=== PATIENT | female | born 1965 | race Caucasian/White ===

== ENCOUNTER 2021-12-23 15:07 | Outpatient (CLI) | payer BC, SELFPAY ==
--- NOTE | ~2021-12-23 | CT_ITS ---
EXAMINATION: CT lung screening DATE: 12/23/2021 15:28 INDICATION: First annual screening examination. TECHNIQUE: Computed tomography (CT) of the chest was performed without intravenous contrast. The dose -length product was 56.62 mGy-cm. Automated exposure control and iterative reconstruction technique w ere employed. COMPARISON: None FINDINGS: Heart size is normal. No significant pleural or pericardial effusion. There is mild ectasia of the ascending thoracic aorta measuring 3.9 cm. There are calcified granulomas in the left lung an d left hilum. There are calcified splenic granulomas. No thoracic lymphadenopathy. The upper abdomen is unremarkable. There are small 3 mm fissural nodules on the right. There is a 4 mm left upper lobe nodule, image 30. No focal consolidation or pneumothorax. No endobronchial lesions. There is a 2 mm r ight upper lobe nodule, coronal image 42. IMPRESSION: 1. Lung-RADS category 2: Benign appearance or behavior. Continue annual screening with noncontrast lo w-dose chest CT in 12 months. Reviewed, dictated and finalized at location [employer]. [employer] IMPRESSION: 1. Lung-RADS category 2: Benign appearance or behavior. Continue annual screeni ng with noncontrast low-dose chest CT in 12 months.
== END 2021-12-23 15:08 | disposition home or self-care (01) ==
LOC: ANHIMG 15:09
PROVIDERS: PCP Family Medicine; Visit Provider Physician Assistant
DX: Z12.2 Encounter for screening for malignant neoplasm of respiratory organs (principal); Z87.891 Personal history of nicotine dependence
CPT/HCPCS: 71271

== ENCOUNTER 2022-12-25 18:18 | Emergency (ER) | payer OTHER, SELFPAY ==
[2022-12-25 18:22] VITALS: BP 139/83; PULSE 82; RESP 14; TEMP 36.4; O2SAT 97
--- NOTE | 2022-12-25 18:34 | ED.URI ---
HPI - URI/Sore Throat General Chief Complaint: Upper Respiratory Infection Stated Complaint: sinus infection Time Seen by Provider: 12/25/22 18:35 Source: patient and RN notes reviewed Mode of arrival: ambulatory Limitations: no limitations History of Present Illness HPI Narrative: 57-year-old female presents with for one-week history of sinus headache, ringing in the ears, nausea. She reports she felt worse over the last 2 days. She reports she has been taking [id number] medications without much relief. MD elicited complaint: sore throat, nasal congestion and sinus pain Related Data Home Medications Medication Instructions Recorded Confirmed hydrocodone 10 mg-acetaminophen 1 tablet PO Q4H PRN 12/22/18 06/18/22 325 mg tablet ([employer]) Allergies Allergy/AdvReac Type Severity Reaction Status Date / Time CEPHALEXIN MONOHYDRATE Allergy Unknown Rash Uncoded 06/18/22 11:03 PROCHLORPERAZINE MALEATE AdvReac Mild Other Uncoded 06/18/22 11:03 PROCHLORPERAZINE EDISYLATE AdvReac Unknown Other Uncoded 06/18/22 11:03 Review of Systems Review of Systems: CONSTITUTIONAL: Reports malaise. Denies chills, sweats, or fever. EYES: Denies visual changes, redness, or discharge. ENT: Reports rhinorrhea, congestion, sinus pain, otalgia and sore throat. CARDIOVASCULAR: Denies chest pain, palpitations, or edema. RESPIRATORY: Denies cough. Denies dyspnea. GASTROINTESTINAL: Denies abdominal pain, nausea, vomiting, diarrhea SKIN: Denies rash or itching. MUSCULOSKELETAL: Denies myalgia. NEUROLOGIC: Reports headache. All systems reviewed & are unremarkable except as noted in HPI and below PMFSH Past Medical History Medical History Chronic low back pain LEVAR (generalized anxiety disorder) GERD (gastroesophageal reflux disease) HTN (hypertension) IFG (impaired fasting glucose) Insomnia Major depression, chronic Vitamin B12 deficiency Vitamin D deficiency Family History Family History Father Hypertension Family history of kidney disease Family history of diabetes mellitus in first degree relative Family history of coronary artery disease Mother Hypertension Sibling Family history of Hodgkin's lymphoma Social History Social History Smoking packs per day: 1 Smoking cigarettes per day: 20.0 Years smoked: 20 Smoking pack-years: 20.00 Smoking status: Current every day smoker Tobacco type: cigarettes Second hand tobacco smoke exposure: Yes Smoking end date: 02/08/04 Alcohol intake: never Substance use: never Substance use type: does not use Living arrangements: with family Occupation/Education: occupation Gender identity (if verbalized by the patient): Female Comments At time of signature, agree with nursing past medical, surgical, social and family history. There is no relevant family history pertinent to the presenting complaint Exam Narrative: GENERAL: Well-appearing, well-nourished, and in no acute distress. HEAD: Normocephalic EYES: PERRLA, conjunctivae clear ENT: Nares clear, turbinates edematous and erythematous, sinus tenderness. Mucous membranes moist. TM pearly roman with dull light reflex bilaterally; no tragal tenderness. Oropharynx not erythematous without lesions. Tonsils not enlarged and without exudate, no drooling, no hoarseness, no trismus, uvula midline. NECK: Supple. No lymphadenopathy CHEST: Clear to auscultation, breath sounds equal. No wheezing, rhonchi, rales, or stridor. No respiratory distress, speaks in full sentences. HEART: Regular rate and rhythm. No murmur heard. SKIN: Warm, dry, no rash. NEURO: Alert and oriented x3. PSYCH: Normal mood and affect Course Course Emergency Course: Patient is aware of diagnosis, understands and agrees to treatment plan. Anticipatory guidance given. Patient
== END 2022-12-25 18:45 | disposition home or self-care (01) ==
PROVIDERS: Emergency Provider Nurse Practitioner; PCP Family Medicine
DX: J32.9 Chronic sinusitis, unspecified (principal); Z87.891 Personal history of nicotine dependence; K21.9 Gastro-esophageal reflux disease without esophagitis; I10 Essential (primary) hypertension
CPT/HCPCS: 99213; G0463

== ENCOUNTER 2023-01-26 00:41 | Day surgery (SDC) | payer OTHER, SELFPAY ==
[2023-01-06 13:21] VITALS: BMI 22.5
--- NOTE | 2023-01-24 08:34 | SUR.PREOP ---
Patient called regarding upcoming procedure. Message left on patient's voicemail regarding appointment times.
--- NOTE | 2023-01-24 14:05 | PM.HPGS ---
History of Present Illness History of Present Illness Consent: Risks, benefits, and alternatives have been discussed and questions answered. Patient agrees to proceed with procedure. Chief complaint: neoplasm screening Narrative: Papo Phillips is a 57 year old female referred for colon cancer screening. Review of Systems Review of Systems: All systems reviewed & are unremarkable except as noted in HPI and below PMFSH Past Medical History Medical History Chronic low back pain LEVAR (generalized anxiety disorder) GERD (gastroesophageal reflux disease) HTN (hypertension) IFG (impaired fasting glucose) Insomnia Major depression, chronic Vitamin B12 deficiency Vitamin D deficiency Family History Family History Father Hypertension Family history of kidney disease Family history of diabetes mellitus in first degree relative Family history of coronary artery disease Mother Hypertension Sibling Family history of Hodgkin's lymphoma Social History Social History Smoking packs per day: 0.5 Smoking cigarettes per day: 10.0 Years smoked: 20 Smoking pack-years: 10.00 Smoking status: Light tobacco smoker Tobacco type: cigarettes Second hand tobacco smoke exposure: Yes Smoking end date: 02/08/04 Alcohol intake: never Substance use: current Substance use type: opiates Other substance usage details: 10mg hydrocodone-acetaminophen 3-4 times daily for back pain Living arrangements: with friend(s) Occupation/Education: occupation Gender identity (if verbalized by the patient): Female Spiritual care concerns: No Meds Home Medications and Allergies Home Medications Medication Instructions Recorded Confirmed Type hydrocodone 10 mg-acetaminophen 1 tablet PO Q4H PRN Pain 12/22/18 01/06/23 History 325 mg tablet ([place]) cetirizine 10 mg tablet 10 mg PO DAILY #90 tabs 12/18/21 01/06/23 Rx omeprazole 20 mg capsule,delayed See Rx Instructions .Route 12/18/21 01/06/23 Rx release .COMPLEX #90 caps duloxetine 60 mg capsule,delayed 60 mg PO DAILY #90 caps 04/20/22 01/06/23 Rx release estradiol 1 mg tablet ([employer]) 1 mg PO DAILY #90 tabs 09/16/22 01/06/23 Rx medroxyprogesterone 2.5 mg tablet 5 mg PO DAILY #180 tabs 09/16/22 01/06/23 Rx trazodone 50 mg tablet 100 mg PO DAILY #180 tabs 10/19/22 01/06/23 Rx alprazolam 0.25 mg tablet 0.25 mg PO TID PRN anxiety #30 tabs 10/25/22 01/06/23 Rx etodolac 500 mg tablet 500 mg PO BID #180 tabs 12/14/22 01/06/23 Rx losartan 100 mg tablet 100 mg PO DAILY 01/06/23 01/06/23 History Allergies Allergy/AdvReac Type Severity Reaction Status Date / Time CEPHALEXIN MONOHYDRATE Allergy Unknown Rash Uncoded 12/28/22 15:03 PROCHLORPERAZINE MALEATE AdvReac Mild Other Uncoded 12/28/22 15:03 PROCHLORPERAZINE EDISYLATE AdvReac Unknown Other Uncoded 12/28/22 15:03 Exam Resp: Auscultation: clear to auscultation bilaterally Cardio: Rate: regular rate Rhythm: regular rhythm GI: GI Palp: Yes Soft to palpation and No Tenderness to palpation present (GI) Assessment and Plan Assessment and plan (1) Colon cancer screening: Code(s): Z12.11 - Encounter for screening for malignant neoplasm of colon Status: Acute Assessment and Plan: Colonoscopy with possible biopsy or polypectomy or cautery or injection of substances.
[2023-01-26 08:27] VITALS: BP 139/88; PULSE 73; RESP 18; TEMP 36.8; O2SAT 100; BMI 23.1
--- NOTE | 2023-01-26 08:46 | WPDANESEPPF ---
Anes - Initial Pre Proc Eval Procedure: Operation Date: 01/26/23 09:30 Proposed Procedures p Screening Colonoscopy - Collin Banks MD Date/Time: 01/26/23 08:46 Surgeon: Collin Banks MD Pre Op Diagnosis: neoplasm screening Patient Data Age: 57 Gender: F Height: 1.52 m Weight: 53.8 kg Last Vital Signs Temp 36.8 C 01/26/23 08:27 Pulse 73 01/26/23 08:27 Resp 18 01/26/23 08:27 BP 139/88 01/26/23 08:27 Pulse Ox 100 01/26/23 08:27 O2 Del Method Room Air 01/26/23 08:27 Allergies Allergy/AdvReac Type Severity Reaction Status Date / Time CEPHALEXIN MONOHYDRATE Allergy Unknown Rash Uncoded 12/28/22 15:03 PROCHLORPERAZINE MALEATE AdvReac Mild Other Uncoded 12/28/22 15:03 PROCHLORPERAZINE EDISYLATE AdvReac Unknown Other Uncoded 12/28/22 15:03 Home Medications Medication Instructions Recorded Confirmed Type hydrocodone 10 mg-acetaminophen 1 tablet PO Q4H PRN Pain 12/22/18 01/06/23 History 325 mg tablet ([place]) cetirizine 10 mg tablet 10 mg PO DAILY #90 tabs 12/18/21 01/06/23 Rx omeprazole 20 mg capsule,delayed See Rx Instructions .Route 12/18/21 01/06/23 Rx release .COMPLEX #90 caps duloxetine 60 mg capsule,delayed 60 mg PO DAILY #90 caps 04/20/22 01/06/23 Rx release estradiol 1 mg tablet ([employer]) 1 mg PO DAILY #90 tabs 09/16/22 01/06/23 Rx medroxyprogesterone 2.5 mg tablet 5 mg PO DAILY #180 tabs 09/16/22 01/06/23 Rx trazodone 50 mg tablet 100 mg PO DAILY #180 tabs 10/19/22 01/06/23 Rx alprazolam 0.25 mg tablet 0.25 mg PO TID PRN anxiety #30 tabs 10/25/22 01/06/23 Rx etodolac 500 mg tablet 500 mg PO BID #180 tabs 12/14/22 01/06/23 Rx losartan 100 mg tablet 100 mg PO DAILY 01/06/23 01/06/23 History Patient hx anesthesia problems: none Family hx anesthesia problems: none Results Review: All pre-operative results and documents have been reviewed as part of the pre-operative evaluation. [facility] Past Medical History Medical History Chronic low back pain LEVAR (generalized anxiety disorder) GERD (gastroesophageal reflux disease) HTN (hypertension) IFG (impaired fasting glucose) Insomnia Major depression, chronic Vitamin B12 deficiency Vitamin D deficiency Family History Family History Father Hypertension Family history of kidney disease Family history of diabetes mellitus in first degree relative Family history of coronary artery disease Mother Hypertension Sibling Family history of Hodgkin's lymphoma Social History Social History Smoking packs per day: 0.5 Smoking cigarettes per day: 10.0 Years smoked: 20 Smoking pack-years: 10.00 Smoking status: Light tobacco smoker Tobacco type: cigarettes Second hand tobacco smoke exposure: Yes Smoking end date: 02/08/04 Alcohol intake: never Substance use: current Substance use type: opiates Other substance usage details: 10mg hydrocodone-acetaminophen 3-4 times daily for back pain Living arrangements: with friend(s) Occupation/Education: occupation Gender identity (if verbalized by the patient): Female Spiritual care concerns: No Anes - Eval Final PreProcedure Day of Procedure 01/26/23 08:46 Patient weight: normal Heart: regular rate and rhythm Lungs: clear to auscultation Airway: Mallampati scale class II Neurological: alert and oriented Last oral intake: >/= 8 hours ASA classification: III Emergent: no Anesthetic plan: proceed Anesthesia type and monitoring: general GIVS and standard monitoring Results Review: All pre-operative results and documents have been reviewed as part of the pre-operative evaluation. Informed Consent: The patient's anesthetic plan and its attendant risks and benefits were discussed with the patient/family/POA. Questions were solicited and answers provided to the satisfaction of
[2023-01-26] MEDS: LACTATED RINGERS 1,000 ML 150 ML IV CONT (08:58)
[2023-01-26] MEDS: SIMETHICONE ORAL SUSPENSION 20 MG/0.3 ML 30 ML BOTTLE 0.6 ML IRRIGATION (09:15)
[2023-01-26 09:22] VITALS: BP 118/69; PULSE 65; RESP 24; O2SAT 99
[2023-01-26 09:32] VITALS: BP 121/69; PULSE 64; RESP 21; O2SAT 100
[2023-01-26 09:42] VITALS: BP 128/68; PULSE 64; RESP 16; O2SAT 100
== END 2023-01-26 10:00 | disposition home or self-care (01) ==
PROVIDERS: PCP Family Medicine; Visit Provider Internal Medicine Gastroenterology
PROC: 0DJD8ZZ Inspection of Lower Intestinal Tract, Via Natural or Artificial Opening Endoscopic (ICD-10-PCS; CPT 45378; principal; 2023-01-26 09:30)
DX: Z12.11 Encounter for screening for malignant neoplasm of colon (principal); I10 Essential (primary) hypertension; K21.9 Gastro-esophageal reflux disease without esophagitis; M54.50 Low back pain, unspecified; G89.29 Other chronic pain; F32.9 Major depressive disorder, single episode, unspecified; F41.1 Generalized anxiety disorder; F17.210 Nicotine dependence, cigarettes, uncomplicated; Z79.891 Long term (current) use of opiate analgesic
CPT/HCPCS: 45378; J2704; J7120

== ENCOUNTER 2023-06-21 11:51 | Outpatient (CLI) | payer OTHER, SELFPAY ==
--- NOTE | ~2023-06-21 | CT_ITS ---
CT Scan of the Chest without Contrast: Clinical Indication: Lung cancer screening, tobacco use Technique: Contiguous sections were acquired throughout the chest without intravenous contrast. Dose reduction technique was used on this scan by utilizing automated exposure control and iterative recon struction technique. The dose-length product (DLP) was 41.74 mGy-cm. COMPARISON: 12/23/2021 Findings: There is no evidence of any significant mediastinal, hilar or axillary lymphadenopathy. The mediastin al soft tissues appear normal. There is no evidence of pleural or pericardial effusion. Stable 3 mm left upper lobe pulmonary nodule (axial image 31). Images through the upper abdomen reveal no abnormalities. Impression: Lung RADS 2: Benign appearance. 12 month follow-up screening CT advised. Reviewed, dictated and finalized at location . Impression: Lung RADS 2: Benign appearance. 12 month follow-up screening CT advised.
== END 2023-06-21 11:52 ==
LOC: MICIMG 11:52
PROVIDERS: PCP Family Medicine; Visit Provider Physician Assistant Medical
DX: Z12.2 Encounter for screening for malignant neoplasm of respiratory organs (principal); Z72.0 Tobacco use
CPT/HCPCS: 71271

== ENCOUNTER 2024-06-01 15:13 | Emergency (ER) | payer OTHER, SELFPAY ==
--- NOTE | ~2024-06-01 | XR_ITS ---
XR forearm RT 2V Ordering provider: Yakov Soni APRN History: . post. radial swelling- hit on counter . Comparison: 05/31/2024 Clinical history tibia exam. FINDINGS: BONES: No acute fracture or dislocation. JOINT SPACES: Normal. SOFT TISSUES: Normal. IMPRESSION: No acute osseous abnormality right forearm. Reviewed, dictated and finalized at location A.
--- OUTSIDE RECORDS SUMMARY | 2024-06-01 15:15 | XMS_ITS | Continuity of Care Document ---
Author Organization [facility] Address [address] [place] [address] Phone Care Team Providers Care Engraving Supervisor Name Role Phone Russell Leong MD Unavailable Unavailable Allergies, Adverse Reactions, Alerts Substance Reaction Status Criticality CEPHALEXIN MONOHYDRATE Active No In formation PROCHLORPERAZINE MALEATE Active No Information PROCHLORPERAZINE EDISYLATE Active N o Information Medications Medication Instructions Dosage Effective Dates (start - stop) Status Comments Zyrtec 10 mg capsule - Active omeprazole 40 mg capsule,delayed release take 1 capsule by oral route every day before a meal 40 MG - Active duloxetine 40 mg capsule,delayed release take 1 tablet by oral route every day - Active losartan 50 mg tablet take 1 tablet by o ral route every day 50 MG - Active amlodipine 5 mg tablet take 1 tablet by oral route every day 5 MG - Active Procedures Procedure Date Eye Exam & Treatment Office/outpatient Visit, Est Office/outpatient Visit, Est Office/outpatient Visit, Est Office/outpatient Visit, New Advance Directives Directive Yes / No Effective Date File Name No Information Encounters Encounter Description Practice Location Reason(s) For Visit Diagnoses Date Provider Providers Copied on Encounter [facility], [address], [place], [place], [id number], tel:[phone] SEC [place] Professional Difficulty reading (chief complaint) Nuclear sclerosis of both eyesSPK (superficial punctate keratitis), bilateral 6 Sal[facility] Wells. [address], [address], [place], [place], [address], [place]. tel:[phone] Referring Provider: London Will MD, [address], [place], [address]. tel:[phone] [facility], [address] [place] [address] [address], [place], [place], [id number], [place] tel:[phone] SEC Pravin MCDONALD Professional No Information 6 Sanjuanita Fu. [address] [place] [address] [facility], [address], [place], [place], [address], [place]. tel:[phone] Office/outpa tient Visit, [facility], [address] [place] [address] [address], [place], [place], [id number], [place] tel:[phone] SEC Pravin MCDONALD Professional Follow Up of Corneal Abrasion (chief complaint) Abrasion, corneal, right, subsequent encounter Oct-1 - 5 Salo Wells. [address], [place], [place], [address], [place]. tel:[phone] Referring Provider: London Will MD, [address], [place], [address]. tel:[phone] Office/outpa tient Visit, [facility], [address] [place] [address] [address], [place], [place], [id number], [place] tel:[phone] SEC Pravin MCDONALD Professional 2 day follow up (chief complaint) Abrasion of cornea, right, subsequent encounter Oct-0 5 Salo Wells. [address], [place], [place], [address], [place]. tel:[phone] Referring Provider: London Will MD, [address], [place], [address]. tel:[phone] Office/outpa tient Visit, [facility], [address] [place] [address] [address], [place], [place], [id number], [place] tel:[phone] SEC [place] Professional pain (chief complaint) Corneal abrasion, right, initial encounter Oct-0 5 Wankum Henri. [address] [facility], [address], [place], [place], [address], [place]. tel:[phone] Referring Provider: London Will MD, [address], [place], [address]. tel:[phone] Office/outpa tient Visit, [facility], [facility], [address], [place], [place], [address], [place] tel:[phone] SEC [place] Professional evaluation (chief complaint) Shingles June- 5 Rick Álvarez. [address] [facility], [address], [place], [place], [address], [place]. tel:[phone] Referring Provider: London Will MD, [address], [place], [address]. tel:[phone] Family History Family Member Type Diagnosis Age At Onset Father Problem (finding) diabetes melli tus in first degree relative Father Problem (finding) Retinal disease Payers Payer name Insurance type Covered libertarian ID Authoriza timaricruz(s) [employer] [id number] Social History Type Description Quantity Date Captured Comments Alcohol Use Details No Caffeine Use Details Tobacco Use Status Never smoked tobacco 2015 Smoking Status Never smoker Sex Female Chief Complaint And Reason For Visit From encounter dated '02/28/2015 14:30'. Difficulty reading (chief complaint). Description: The 49 year old female presents for a 3 month IOP check with a DFE ou. Patient denies any changes in vision ou. Reason For Referral Reason For Referral No Information History Of Present Illness Encounter Date Complaint History Of Prese nt Illness Difficulty reading The 49 year o ld female presents for a 3 month IOP check with a DFE ou. Patient denies any changes in vision ou. Follow Up of Corneal Abrasion Th e 49 year old female presents for 1 week follow up Corneal Abrasion OD. Pt states OD feels much better and vision is only slightly blurry now. Pt is still using Cipro OD QID and has BCL OD. 2 day follow up The 49 year old female presents for a 2 day follow up to Corneal abrasion in the right eye. Patient states the OD is better and improving VA still blurry. Patient wearing a BCL and using Cipro QID OD. pain The 49 year old female presents for a WIE. Patient c/o OD is painful x 1 day. Patient went to ER yesterday am and said looks like an abrasion OD. Patient was prescribed Tobramycin and Cipro qid OD. Patient had shingles 6 months ago and wonders if its shingles again. Patient has hx of Lasik ou. Patient states ER gave her one drop ofr Prednisolone and 1 PO acyclovir. Patient is very light sensitive. evaluation The 48 year old female presents for evaluation of shingles per Dr. Will. Patient notices rash 3 days ago. Patient c/o RUL itches some. Functional Status Date Functional Assessmen t No Information Instructions Date Instruction Additional Infor mikey Follow up - 1 year complete Impression/Plan - Ov erall eye health is good OU. Discussed that both eyes are slightly dry and that she has normal aging changes to the lens of both eyes that are not visually significant. Recommend patient return in 1 year or sooner with problems. Follow up - Return i n 3 months with Russell Leong M.D. for IOP check. Impression/Plan - BC TL removed - abrasion healed with no residual epi-defect. Continue Cipro eye drop qid for 3 more days then stop. Due to mildly elevated IOP today OD, will have patient follow up in 3 months for IOP check and DFE. If normal, schedule for yearlly exam. Follow up - RTC in 1 week for f/ u. Impression/Plan - 2 day f/u to Corneal Abrasion OD. Underlining abrasion appears healed, but still with rough epithelium. BCL OD in place ( [employer] 8.3 14.0 +0.50). Advised pt to continue BCL and Cipro QID OD. RTC in 1 week for f/u. If symptoms get worse, pt will call. Will likely remove BCTL and D/c Cipro at next visit. If patient gets worse, must consider Zoster as potential etiology given hx of Zoster infection in the past. Return in 2 days wit h Russell Leong M.D. for follow up exam. Related to Corneal abrasion, right, initial encounter Follow up - Return i n 2 days with Russell Leong M.D. for follow up exam. Related to Corneal abrasion, right, initial encounter Impression/Plan - Di scussed dx in detail with patient. Continue Cipro QID OD, inserted bandage contact OD, [employer] 8.3 14.0 +0.50. Return to clinic in 2 days for follow up. Related to Corneal abrasion, right, initial encounter - as needed Related to Shing les - Discussed diagnosi s in detail with patient. I don't see any problems with the eyes related to shingles. Patient to call office if symptoms worsen and spreads to eyes. Continue current treatment regimen given by PCP. Related to Shingles Assessments Type Assessment Date assessment Nuclear sclerosis of both eyes J assessment SPK (superficial punctate kerati tis), bilateral Patient Care Teams Name Effective Dates (start - stop) Status Members No Information
--- OUTSIDE RECORDS SUMMARY | 2024-06-01 15:15 | XMS_ITS | Clinical Summary ---
Author Organization [facility] Address [address] [place] [address] Care Team Providers Care Connie Cleaner Name Role Phone Russell Carrion MD Primary Care Provider Taiwo Sands RN Unavailable Unavailabl Sarah Garza RN Unavailable Unavailab Conner Ng MD Unavailable [phone] Allergies Active Allergy Reactions Criticality Noted Date Comments Cephalexin Rash Medium Prochlorperazine Muscle pain Medium Medications cetirizine (ZyrTEC) 10 mg capsule 10 mg. 0 0 4 Active docusate sodium (COLACE) 100 mg capsule take 1 capsule (100MG) by oral route every day at bedtime as needed 30 0 4 Active calcium carbonate-vitami n D3 (CALCIUM 600 + D,3,) 1500 mg (600 mg elemental) -400 units per tablet take 1 po qd 0 0 5 Active cyanocobalamin (vitamin B-12) 1,000 mcg tablet take 1 by Oral route one daily 0 0 5 Active Additional Information Patient not taking.Reported on 04/04/2023 etodolac (LODINE) 500 mg tablet TAKE 1 TABLET BY MOUTH TWICE DAILY 180 0 5 Active losartan (COZAAR) 25 mg tablet TAKE 1 TABLET BY ORAL ROUTE EVERY DAY 90 1 5 Active traZODone (DESYREL) 50 mg tablet TAKE 1 TABLET BY ORAL ROUTE EVERY DAY AT BEDTIME 90 1 5 Active amLODIPine (NORVASC) 5 mg tablet take 1 tablet by oral route every day [address] (CYMBALTA) 60 mg capsule TAKE 1 CAPSULE BY MOUTH EVERY DAY 90 1 3 Active naloxone (NARCAN) 4 mg/actuation spray,non-aeroso lIndications:Opi ate-Induced Respiratory Depression Administer 1 spray into affected nostril(s) as needed for opioid reversal 1 each 3 Active estradioL (ESTRACE) 1 mg tablet Take 1 tablet (1 mg total) by mouth daily 4 Active medroxyPROGESTER one (PROVERA) 2.5 mg tablet Take 1 tablet (2.5 mg total) by mouth daily 4 Active omeprazole (PriLOSEC) 20 mg capsule Take 1 capsule (20 mg total) by mouth daily 3 Active HYDROcodone-acet aminophen (Errol) 10-325 mg per tabletIndication s:Lumbar facet joint syndrome,Chronic bilateral low back pain without sciatica Take 1 tablet by mouth 4 (four) times a day as needed for pain 120 tablet 5 Active HYDROcodone-acet aminophen (NORCO) 10-325 mg per tabletIndication s:Pain Take 1 tablet by mouth 4 (four) times a day as needed for pain 120 tablet 5 Active HYDROcodone-acet aminophen (NORCO) 10-325 mg per tabletIndication s:Pain Take 1 tablet by mouth 4 (four) times a day as needed for pain 120 tablet 5 06/30/19 25 Active cyclobenzaprine (FLEXERIL) 10 mg tabletIndication s:Lumbar facet joint syndrome,Chronic bilateral low back pain without sciatica Take 1 tablet (10 mg total) by mouth daily as needed for muscle spasms 30 tablet 5 Active estradioL (ESTRACE) 0.01 % (0.1 mg/gram) vaginal cream Apply 0.5-1g nightly to vagina for 1 week, then Tuesday/ y/ Tuesday 42.5 g 5 5 12/20/19 25 Active Active Problems Problem Noted Date Diagnosed Date Pain in thoracic spine 05/14/2022 Sacroiliitis 11/30/2019 Lumbar facet joint syndrome 11/30/2019 DDD (degenerative disc disease), lumbar 05/18/19 20 Lumbar radiculopathy 05/18/2019 rn long term care (current) use of opiate analgesic 08/2018 Chronic bilateral low back pain without sciatica 11/09/2017 Fibromyalgia 11/09/2017 Gastroesophageal reflux disease 06/23/2013 Overview (05/14/2016): GERD (gastroesophageal reflux disease) Mixed anxiety depressive disorder 06/23/2013 Overview (05/15/2016): Depression with anxiety Hypertension 11/25/2011 Overview (05/15/2016): Hypertension Encounters Date Type Department Care Team Description 04/23/2024 1:50 PM CDT Office Visit [facility] [address] [place] [address] Ede Fung DO ASCUS with positive high risk HPV cervical (Primary Dx); Vaginal atrophy 04/19/2024 Results Follow-Up [facility] [address] [place] [address] Ede Fung DO 04/13/2024 2:[address] [facility] Ancillary Procedure [facility] [address] [place] [address] Encounter for screening mammogram for malignant neoplasm of breast 04/13/2024 1:26 [address] [facility] [address] - 04/13/2024 11:59 PM [facility] Hospital Encounter [address] [address] Screening for malignant neoplasm of cervix Discharge Disposition: Discharge to home or self care 04/13/2024 1:[address] [facility] [facility] [address] [place] [address] Ede Fung DO Encounter for annual routine gynecological examination (Primary Dx); Screening for malignant neoplasm of cervix; Encounter for screening mammogram for malignant neoplasm of breast 04/13/2024 Orders Only [facility] [address] [place] [address] Ede Fung DO Encounter for screening mammogram for malignant neoplasm of breast (Primary Dx) 03/23/2024 2:27 PM [facility] [address] - 03/23/2024 11:59 PM [facility] Hospital Encounter [facility] [address] [facility] [address] [place] [address] Leena Gould NP Lumbar facet joint syndrome (Primary Dx); Degeneration of intervertebral disc of lumbar region with discogenic back pain; assisted (current) use of opiate analgesic Discharge Disposition: Discharge to home or self care from Last 3 Months Immunizations Immunization Administration Dates Next Due Influenza, Quadrivalent, Spl it, Preservative Free, Intramuscular 11/12/2021 Moderna SARS-CoV-2 Monovalent Vaccination (12+ Y RS) 03/04/2020 Tdap 04/26/2014 Surgical History Surgery Date Site/Laterality Comments SECTION 02/08/1992 - 02/06/1993 CARPAL TUNNEL RELEASE 02/08/1988 - 02/06/1989 Right CARPAL TUNNEL RELEASE 02/07/2010 - 02/06/2011 Left TRIGGER FINGER RELEASE 02/07/2011 - 02/07/2012 Left SHOULDER SURGERY 02/07/2013 - 02/06/2014 Right shoulder impingement syndrome Medical History Medical History Date Comments Fibromyalgia GERD (gastroesophageal reflux disease) Mitral valve prolapse Seasonal allergies Anxiety and depression Hypertension treated by pcp Low back pain Extremity pain Family History Medical History Relation Name Comments Hodgkin's lymphoma Brother 2 COD Diabetes Father Heart attack Father Kidney failure Father Heart disease Mother Hypertension Mother Breast cancer Mother's Sister Relation Name Status Comments Brother 1 Brother 2 Father Mother Mother's Sister Social History Tobacco Use Types Packs/Day Years Used Date Smoking Tobacco: Former Cigarettes 0.3 18 1 990 - 2008 Smokeless Tobacco: Never Tobacco Cessation:Counseling Given: Not Answered Comments:Smoking History Packs/day: 0.25 Packs Alcohol Use Standard Drinks/Week Comments Yes 0 (1 standard drink = 0.6 oz pur e alcohol) PHQ-2 Answer Date Recorded PHQ-2 Total Score (If total score is 3 or more points, staff should administer the PHQ-9) 1 03/23/2024 PHQ-9 Answer Date Recorded PHQ-9 Total Score 5 03/23/2024 Comments No Sex and Gender Information Value Date Recorded Sex Assigned at Not on file Legal Sex Female 1:41 AM [facility] [address] Gender Identity Not on file Sexual Orientation Not on file 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 Not on file Not on fi le Obstetrics History Para Term AB IAB SAB Ectopic Multiple Livin g Live Births 1 1 1 0 0 0 0 0 0 1 1 Date Outcome GA Total Labor Labor/2nd/3rd Weight Sex Type Anes PTL Rachana A1 A5 Name Clin 1992 Term 42w 0d 3.487 kg (7 lb 11 oz) F C-Sec tion Living Last Filed Vital Signs Vital Sign Reading Time Taken Comments Blood Pressure 118/76 04/23/2024 1:55 PM CDT Pulse 82 03/23/2024 2:52 PM [facility] Temperature 36.7 C (98 F) 03/14/2020 11:43 AM [facility] Respiratory Rate 18 03/23/2024 2:52 PM [facility] Oxygen Saturation 98% 03/23/2024 2:52 PM [facility] Inhaled Oxygen Concentration - - Weight 55.8 kg (123 lb) 04/23/2024 1:55 PM CDT Height 152.4 cm (5') 04/04/2023 1:13 PM [facility] Body Mass Index 24.02 04/04/2023 1:13 PM [facility] [address] Plan of Treatment Health Maintenance Due Date Last Done Comments Hepatitis C Screening 1965 Hepatitis B Screening 1982 Zoster Vaccine (1 of 2) 2014 Colon Cancer Screening-Colonoscopy 04/20/2022 04/20/2012 Covid-19 Vaccine (2 - season) 2023 03/04/2020 DTaP/Tdap/Td Vaccine (2 - Td or Tdap) 04/26/2024 04/26/2014 Influenza Vaccine (Season Ended) 2024 11/12/2021 Depression Screening 03/23/2025 03/23/2024, 03/23/2024, 12/28/2023, Additional history exists Breast Cancer Screening-Mammogram 04/13/2025 04/13/2024, 04/04/2023, 11/12/2019, Additional history exists Cervical Cancer Screening 04/13/20252024, 04/13/2024, 04/04/2023, Additional history exists Regular Well Visit/Exam 18-64 04/13/2025 04/13/2024, 04/04/2023, 11/12/2019, Additional history exists Colon Cancer Screening-CT Colonography Discontinued 04/20/2012 Colon Cancer Screening-DNA Stool Discontinued 04/20/2012 Colon Cancer Screening-FIT Discontinued 04/20/2012 Colon Cancer Screening-Sigmoidoscopy Discontinued 04/20/2012 Pneumococcal vaccine <65 Aged Out No longer eligible based on patient's age to complete this topic Goals Goal Patient Goal Type Associated Problems Recent Progress Patient-Stated? Author -Pain Behavioral Health On track( 020 2:54 PM [facility] [address]) No Taiwo Sands, RN Note: Patient will establish a comfort-function goal and identify the pain level that will allow the patient to perform desired activities and achieve an acceptable quality of life. -Pain Behavioral Health On track( 020 2:54 PM [facility] [address]) No Taiwo Sands, RN Note: Patient will report that the pain management medication regimen achieves comfort-function goal without the occurrence of adverse effects. Procedures Procedure Name Priority Date/Time Associated Diagnosis Comments SCREENING MAMMOGRAM BILATERAL W LUIS Schedule Routine, Read Routine (OP Routine) 04/13/2024 1:46 PM [facility] [address] Encounter for screening mammogram for malignant neoplasm of breast PAP AND HIGH RISK HPV, REFLEX TO GENOTYPING Routine 04/13/2024 11:40 AM [facility] [address] Screening for malignant neoplasm of cervix HIGH RISK HPV DNA DETECTION WITH GENOTYPING Routine 04/13/2024 9:30 AM [facility] [address] Screening for malignant neoplasm of cervix COLONOSCOPY 04/20/2012 12:00 AM CDT from Last 3 Months or Most Recently Relevant to Health Maintenance Results * Screening Mammogram Bilateral W Luis (04/13/2024 1:46 PM [facility] [address]) Anatomical Region Laterality Modality Breast Bilateral Mammography 04/13/2024 4:06 PM [facility] Impressions 04/13/2024 4:06 PM [facility] There is no mammographic evidence of malignancy. A 1 year screening mammogram is recommended. BI-RADS: 1 - Negative. The patient has been or will be contacted. The patient will be entered into a reminder system with a target due date of 1 year for her next mammogram. Electronically signed by: Rosy Limon M.D. Narrative 04/13/2024 4:06 PM [facility] EXAMINATION: SCREENING MAMMOGRAM BILATERAL W LUIS ORDERING HEALTHCARE PROVIDER: EDE FUNG HISTORY: Routine screening mammography. COMPARISON: 04/04/2023, 11/12/2019, 10/23/2018 TECHNIQUE: CC and MLO views of the bilateral breasts were obtained with digital technique using breast tomosynthesis with C view. Computer aided detection was utilized. FINDINGS: DENSITY: The breasts are heterogeneously dense, which may obscure small masses. BREASTS: There are no suspicious masses, suspicious calcifications, or other suspicious findings in either breast. There has been no suspicious interval change. Ede Fung DO IMG MAMMO PROCEDURES Fi nal Result * (ABNORMAL) Pap and High Risk HPV and Genotyping (Cytology Component) (04/13/2024 11:40 AM [facility]) Thin prep (Pap test) 04/13/2024 11:40 AM [facility] [address] 04/13/2024 11:40 AM [facility] Narrative PATHOLOGY CH - 04/18/2024 4:42 PM CDT [facility] Department of Pathology [address] [place] [address] Final Report with Addendum Note to Patients: This report may contain a detailed description of human tissue sent by a health care provider to the laboratory for pathologic evaluation. The content of this report is essential for diagnosis and may provide important critical findings. This information may be unfamiliar to patients to review without a medical professional present. It is advised that the patient review this report in the presence of a health care provider who can answer questions and explain the details. Patient Name: PAPO MORALES Address: [address] [place], [place] [id number]- Gender: F : 1965 (Age: 58) Service: Location: [facility] #: [id number] Patient Type: SPECIMEN Taken: 04/13/2024 Received: 04/13/2024 Accessioned:: 04/16/2024 Reported: 04/18/2024 Physician(s): Lizzie Turner D.O. Diagnosis: SOURCE OF SPECIMEN SCREENING THIN PREP IMAGED PAP w/ HPV: STATEMENT OF ADEQUACY - Specimen satisfactory for interpretation; endocervical/transformation zone component absent or insufficient GENERAL CATEGORIZATION: - Epithelial cell abnormality INTERPRETATION: - Atypical squamous cells of undetermined significance Yas IRVIN(ASCP)Sivakumar Garibay M.D. Report Electronically Reviewed and Signed Out By Sivakumar Garibay M.D. 04/18/2024 16:42:23Addenda: HPV Test Interpretation HPV HR 16- Not Detected HPV HR 18- Not Detected HPV HR non 16/18- Detected Interpretive Data Nucleic acid amplification for detection of high-risk Human Papilloma virus (HPV) is performed by the Froylan Anila 6800 HPV test. This assay specifically detects HPV-16 and HPV-18 genotypes. The following HPV genotypes are detected as high-risk HPV: HPV-31, 33, 35, 39, 45, 51, 52, 56, 58, 59, 66, and 68. This assay has been approved by the [place] Food and Drug Administration for detection of HPV in cervical specimens collected by a physician using an endocervical brush/spatula or cervical broom and placed in the ThinPrep Pap Test PreservCyt collection containers. The performance characteristics of this test have been verified by the [facility] laboratory. Correlate with reported cytology results, as applicable. Interpretive data last revised 22 ALBARO Adrian(ASCP)Report Electronically Reviewed and Signed Out By RADHA AdrianASCP) 04/17/2024 10:09:36 Specimen(s) Received: A: SCREENING THIN PREP IMAGED PAP w/ HPV Clinical History: Menstrual History: Post-menopausal The Pap test is a screening test used to aid in the detection of cervical cancer and its precursors. It should not be the sole means by which malignant and premalignant lesions are diagnosed. Both false negative and false positive results may occur. It also has poor sensitivity for the detection of endometrial lesions and should not be used to evaluate suspected endometrial abnormalities. For these reasons it is most important to obtain Pap tests at regular intervals. The performance characteristics of some immunohistochemical stains, fluorescence in-situ hybridization tests and immunophenotyping by flow cytometry cited in this report (if any) were determined by the Surgical Pathology Department at [facility] as part of an ongoing quality officer program and in compliance with federally mandated regulations drawn from the Clinical Laboratory Improvement Act of 1988 (CLIA '88). Some of these tests rely on the use of analyte specific reagents and are subject to specific labeling requirements by the US Food and Drug Administration. Such diagnostic tests may only be performed in a facility that is certified by the Department of Health and Human Services as a high complexity laboratory under CLIA '88. The FDA has determined that such clearance or approval is not necessary. This test is used for clinical purposes. It should not be regarded as investigational or for research. Nevertheless, federal rules concerning the medical use of analyte specific reagents require that the following disclaimer be attached to the report: This test was developed and its performance characteristics determined by the Surgical Pathology Department [facility]. It has not been cleared or approved by the U. S. Food and Drug Administration. Ede Fung DO LAB CYTOLOGY ORDERABLES Final Result Performing Organization Address City/State/[facility] Co de Phone Number PATHOLOGY [address] [place] [address] * (ABNORMAL) High Risk HPV DNA Detection with Genotyping (Molecular component) (04/13/2024 9:30 AM [facility] [address]) HPV HR 16 Not Detected Not Detected [facility] Comment:Testing performed by : [facility], [address] [place]., [address] HPV HR 18 Not Detected Not Detected [facility] Comment:Testing performed by : [facility], [address] [place]., [address] HPV HR Non 16/18 Detected(A) Not Detected [facility] Comment: Interpretive Data Nucleic acid amplification for detection of high-risk Human Papilloma virus (HPV) is performed by the Froylan Anila 6800 HPV test. This assay specifically detects HPV-16 and HPV-18 genotypes. The following HPV genotypes are detected as high-risk HPV: HPV-31, 33, 35, ,39, 45, 51, 52, 56, 58, 59, 66, and 68. This assay has been approved by the [place] Food and Drug Administration for detection of HPV in cervical specimens collected by a physician using an endocervical brush/spatula or cervical broom and placed in the ThinPrep Pap Test PreservCyt collection containers. The performance characteristics of this test have been verified by the [facility] laboratory. Correlate with separately reported cytology results, as applicable. Interpretive data last revised 22 Testing performed by: [facility], [address] [place] [address]., [address] Endocervical 04/13/2024 9:30 AM [facility] 04/16/2024 2:20 PM CDT Narrative [facility] - 04/16/2024 8:31 PM CDT Clinical history and diagnosis->Liquid-based PAP test with high risk HPV test- Z12.4 Number of vials->1 Testing type->Screening Last menstrual period (date if known)->N/A Menstrual status->Postmenopausal Contraceptive use->None Ede Fung DO LAB BODY FLUIDS AND STO OLS ORDERABLES Final Result [facility] [address] [address] Department [place] [address] [facility] * COLONOSCOPY (04/20/2012 12:00 AM CDT) Anatomical Region Laterality Modality Other Narrative 04/20/2012 12:00 AM CDT Ordered by an unspecified provider. Procedure Note ProviderJim MD - 04/20/2012 12:00 AM CDT PROCEDURE REPORT Patient: PAPO MORALES Account: [id number] Room No: : 1965 Patient Type: SDS Attend.: Twin Katz M.D. Admit Date: 04/20/2012 Dict.: Twin Katz M.D. Disch. Date: 04/20/2012 NAME OF PROCEDURE: COLONOSCOPY DATE April 20, [address] Will. PREVIOUS PROCEDURE None. X-RAYS None. HISTORY AND PHYSICAL EXAMINATION The patient is a 46-year-old white female with a history of constipation,gas, bloating and abdominal cramping. She was referred now for evaluation ofthe same as well as for screening colonoscopy. She denies any significantfamily history. There has been no blood in the stool. She does note agrandfather with colon cancer. Physical examination today is that of a well-developed, well-nourished,white female in no acute distress. She is nonicteric. Her lungs were clear.Heart was regular. GI was soft and supple. Extremities showed no calf pain,cords or edema. PREPROCEDURE DIAGNOSES 1. Abdominal cramping with constipation, gas and bloating. 2. Screening colonoscopy. PHYSICIAN Twin Katz M.D. INSTRUMENT USED Synference video endoscope. MEDICATIONS Per anesthesia. FINDINGS The colonoscope was introduced into the rectum left lateral position andpassed to the cecum. The patient tolerated the procedure well. There were no complications. On withdrawal of the colonoscope, the mucosa appearednormal with a normal vascular pattern. No polyps or masses were noted in thececum, right. transverse or left colons. The rectal sigmoid was somewhat tortuousbut normal. The rectum itself was normal. Retroflex view of the internalanal area showed small internal hemorrhoidal tissue. Anal exam showed noperianal disease, no rectal masses. COMPLICATIONS None. POSTPROCEDURE DIAGNOSES 1. Normal screening colonoscopy to the cecum with a withdrawal time of 9 minutes and 59 seconds. Preparation was excellent. 2. Symptoms that re compatible with functional disorder withconstipation predominant habits. POSTPROCEDURE ORDERS 1. Postsedation instructions. 2. High fiber diet. 3. [employer] [employer] screening recommendations with repeat colon inten years. 4. Thyroid functions if not done. 5. Celiac sprue screen if not done. 6. Consider small bowel series in light of her prior abdominal surgeriesto rule out entrapment. 7. Followup with . Twin Katz M.D. MA/oral TD: 04/21/2012 07:32 CC: London Will M.D. Authenticated by Twin Katz MD On 04/28/2012 12:56:44 PM Historical Provider ENDOSCOPY PROCEDURES Kenna l Result from Last 3 Months or Most Recently Relevant to Health Maintenance Insurance [facility] CHOICE PLUS [facility] [place] [address] [employer] Care Teams Connie Cleaner Relationship Specialty Start Date End Date Russell Carrion MD [address] [place] [address] PCP - General 06/18/16 Taiwo Sands, RN Registered Nurse 01/27/17 Sarah Darby, JAILENE Registered Nurse Pain Management 08/08/17 Conner Altman MD [address] [place] [address] Consulting Physician Anesthesiology 09/28/23
--- OUTSIDE RECORDS SUMMARY | 2024-06-01 15:15 | XMS_ITS | Referral Summary ---
Author Organization [facility] Address [address] [place] [address] Care Team Providers Care Vp Hr Diversity Name Role Phone Russell Carrion MD Primary Care Provider Taiwo Sands RN Unavailable UnavailSarah Lu RN Unavailable Unavailab Conner Ng MD Unavailable [phone] Encounters Date Type Department Care Team Description 04/23/2024 1:50 PM CDT Office Visit [facility] [address] [place] [address] Ede Fung DO ASCUS with positive high risk HPV cervical (Primary Dx); Vaginal atrophy 04/19/2024 Results Follow-Up [address] [phone] Ede Fung DO 04/13/2024 1:26 PM ACCOUNT EXECUTIVE [employer]RI[employer] - 04/13/2024 11:59 PM ACCOUNT EXECUTIVE [employer] [place] [address] Screening for malignant neoplasm of cervix Discharge Disposition: Discharge to home or self care 04/13/2024 2:00 PM ACCOUNT EXECUTIVE [employer] Ancillary Procedure [facility] [address] [place] [phone] Encounter for screening mammogram for malignant neoplasm of breast 04/13/2024 Orders Only [facility] [address] [place] [address] Ede Fung, Encounter for screening mammogram for malignant neoplasm of breast (Primary Dx) 04/13/2024 1:00 PM ACCOUNT EXECUTIVE [employer]RI[employer] Office Visit [facility] [address] [facility] [address] [place] [address] Ede Fung, Encounter for annual routine gynecological examination (Primary Dx); Screening for malignant neoplasm of cervix; Encounter for screening mammogram for malignant neoplasm of breast 03/23/2024 2:27 PM ACCOUNT EXECUTIVE [employer]RI[employer] - 03/23/2024 11:59 PM ACCOUNT EXECUTIVE [employer] Hospital Encounter [facility] [address] [facility] [address], [address] [place] [address] Leena Gould NP Lumbar facet joint syndrome (Primary Dx); Degeneration of intervertebral disc of lumbar region with discogenic back pain; manager long term care (current) use of opiate analgesic Discharge Disposition: Discharge to home or self care from Last 3 Months Allergies Active Allergy Reactions Criticality Noted Date [...] tablet by oral route every day [address] (CYMBALTA) 60 mg [...] by mouth daily 3 Active HYDROcodone-acet aminophen ([place]) 10-325 mg per tabletIndication s:Lumbar facet joint [...] 11/30/2019 DDD (degenerative disc disease), lumbar 05/18/19 Lumbar radiculopathy 05/18/2019 care home (current) use of opiate analgesic 08/2018 Chronic bilateral low back pain without sciatica 11/09/2017 Fibromyalgia 11/09/2017 Gastroesophageal reflux disease 06/23/2013 Overview (05/14/2016): GERD (gastroesophageal reflux disease) Mixed anxiety depressive disorder 06/23/2013 Overview (05/15/2016): Depression with anxiety Hypertension 11/25/2011 Overview (05/15/2016): Hypertension Immunizations Immunization Administration Dates Next Due Influenza, Quadrivalent, Spl it, Preservative Free, Intramuscular 11/12/2021 Moderna SARS-CoV-2 Monovalent Vaccination (12+ Y RS) 03/04/2020 Tdap 04/26/2014 Social History Tobacco Use Types Packs/Day Years Used Date Smoking Tobacco: Former Cigarettes 0.3 18 1 0 - 2007 Smokeless Tobacco: Never Tobacco Cessation:Counseling Given: Not [...] on file Legal Sex Female 1:41 AM ACCOUNT EXECUTIVE [employer] Gender Identity Not on file Sexual Orientation Not on file 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 on file Not on file Not on fi le Last Filed Vital Signs Vital Sign Reading Time Taken Comments Blood Pressure 118/76 04/23/2024 1:55 PM CDT Pulse 82 03/23/2024 2:52 PM ACCOUNT EXECUTIVE [employer] Temperature 36.7 C (98 F) 03/14/2020 11:43 AM ACCOUNT EXECUTIVE [employer] Respiratory Rate 18 03/23/2024 2:52 PM ACCOUNT EXECUTIVE [employer]RI[employer] Oxygen Saturation 98% 03/23/2024 2:52 PM ACCOUNT EXECUTIVE [employer] Inhaled Oxygen Concentration - - Weight 55.8 kg (123 lb) 04/23/2024 1:55 PM CDT Height 152.4 cm (5') 04/04/2023 1:13 PM ACCOUNT EXECUTIVE [employer] Body Mass Index 24.02 04/04/2023 1:13 PM ACCOUNT EXECUTIVE [employer] Plan of Treatment Not on file Goals Goal Patient Goal Type Associated Problems Recent Progress Patient-Stated? Author -Pain Behavioral Health On track( 2:54 PM ACCOUNT EXECUTIVE [employer]RI[employer]) No Taiwo Sands, RN Note: Patient will establish a comfort-function goal and identify the pain level that will allow the patient to perform desired activities and achieve an acceptable quality of life. -Pain Behavioral Health On track( 2:54 PM ACCOUNT EXECUTIVE [employer]RI[employer]INESS) No Taiwo Sands, RN Note: Patient will report that the pain management medication regimen achieves comfort-function goal without the occurrence of adverse effects. Procedures Procedure Name Priority Date/Time Associated Diagnosis Comments SCREENING MAMMOGRAM BILATERAL W LUIS Schedule Routine, Read Routine (OP Routine) 04/13/2024 1:46 PM ACCOUNT EXECUTIVE [employer] Encounter for screening mammogram for malignant neoplasm of breast PAP AND HIGH RISK HPV, REFLEX TO GENOTYPING Routine 04/13/2024 11:40 AM ACCOUNT EXECUTIVE [employer] Screening for malignant neoplasm of cervix HIGH RISK HPV DNA DETECTION WITH GENOTYPING Routine 04/13/2024 9:30 AM ACCOUNT EXECUTIVE [employer]RI[employer] Screening for malignant neoplasm of cervix COLONOSCOPY 04/20/2012 12:00 AM CDT from Last 3 Months or Most Recently Relevant to Health Maintenance Results * Screening Mammogram Bilateral W Luis (04/13/2024 1:46 PM ACCOUNT EXECUTIVE [employer]) Anatomical Region Laterality Modality Breast Bilateral Mammography 04/13/2024 4:06 PM ACCOUNT EXECUTIVE [employer]RI[employer] Impressions 04/13/2024 4:06 PM ACCOUNT EXECUTIVE [employer]RI[employer]INESS There is no mammographic evidence of malignancy. A 1 year screening mammogram is recommended. BI-RADS: 1 - Negative. The patient has been or will be contacted. The patient will be entered into a reminder system with a target due date of 1 year for her next mammogram. Electronically signed by: Rosy Limon M.D. Narrative 04/13/2024 4:06 PM ACCOUNT EXECUTIVE [employer] EXAMINATION: SCREENING MAMMOGRAM BILATERAL W LUIS ORDERING [...] There has been no suspicious interval change. us Ede Fung DO IMG MAMMO PROCEDURES Fi nal Result * (ABNORMAL) Pap and High Risk HPV and Genotyping (Cytology Component) (04/13/2024 11:40 AM ACCOUNT EXECUTIVE [employer]RI[employer]INESS) Thin prep (Pap test) 04/13/2024 11:40 AM ACCOUNT EXECUTIVE [employer]RI[employer]INESS 04/13/2024 11:40 AM ACCOUNT EXECUTIVE [employer]RI[employer]INESS Narrative PATHOLOGY CH - 04/18/2024 4:42 PM CDT [facility] Department of Pathology [address] [place] [address] Final Report with Addendum Note to Patients: [...] the details. Patient Name: PAPO MORALES Address: [address] [place] [address]- Gender: F : 1965 (Age: 58) Service: Location: [facility] : [id number] [facility] #: [id number] Patient Type: SPECIMEN Taken: 04/13/2024 Received: 04/13/2024 [...] this test have been verified by the [facility] Molecular Infectious Disease laboratory. Correlate with reported cytology results, as applicable. Interpretive data last revised 22 ALBARO Adrian(ASCP)Report Electronically Reviewed and Signed Out By ALBARO Adrian(ASCP) 04/17/2024 10:09:36 Specimen(s) Received: A: SCREENING THIN [...] determined by the Surgical Pathology Department at [facility] as part of an ongoing senior software quality engineer program and in compliance with federally mandated [...] characteristics determined by the Surgical Pathology Department [facility]. It has not been cleared or approved by the U. S. Food and Drug Administration. Ede Fung DO LAB CYTOLOGY ORDERABLES Final Result PATHOLOGY [address] [place] [address] * (ABNORMAL) High Risk HPV DNA Detection with Genotyping (Molecular component) (04/13/2024 9:30 AM ACCOUNT EXECUTIVE AGRIBUSINESS) HPV HR 16 Not Detected Not Detected [facility] Comment:Testing performed by : [facility], [address] [place]., [address] HPV HR 18 Not Detected Not Detected [facility] Comment:Testing performed by : [facility], [address] [place]., [address] HPV HR Non 16/18 Detected(A) Not Detected [...] this test have been verified by the [facility] Molecular Infectious Disease laboratory. Correlate with separately reported cytology results, as applicable. Interpretive data last revised 22 Testing performed by: [facility], [address] [place]., [address] Endocervical 04/13/2024 9:30 AM ACCOUNT EXECUTIVE [employer]RIBUSINESS 04/16/2024 2:20 PM CDT Narrative [facility] - 04/16/2024 8:31 PM CDT Clinical history and diagnosis->Liquid-based PAP test with high risk HPV test- Z12.4 Number of vials->1 Testing type->Screening Last menstrual period (date if known)->N/A Menstrual status->Postmenopausal Contraceptive use->None Ede Fung DO LAB BODY FLUIDS AND STO OLS ORDERABLES Final Result [facility] [address] [facility] Department [place] [address] [facility] * COLONOSCOPY (04/20/2012 12:00 AM CDT) Anatomical Region Laterality Modality Other Narrative 04/20/2012 12:00 AM CDT Ordered by an unspecified provider. Procedure Note Provider, MD Jim - 04/20/2012 12:00 AM CDT PROCEDURE REPORT Patient: PAPO MORALES Account: [id number] Room No: : 1965 Patient Type: SDS [...] colonoscopy. PHYSICIAN Twin Katz M.D. INSTRUMENT USED [employer] video endoscope. MEDICATIONS Per anesthesia. FINDINGS The [...] Postsedation instructions. 2. High fiber diet. 3. [place] [employer] screening recommendations with repeat colon inten years. 4. Thyroid functions if not done. 5. Celiac sprue screen if not done. 6. Consider small bowel series in light of her prior abdominal surgeriesto rule out entrapment. 7. Followup with . Twin Katz M.D. PAT/oral TD: 04/21/2012 07:32 CC: London Will M.D. Authenticated by Twin Katz MD On 04/28/2012 12:56:44 PM us Historical Provider ENDOSCOPY PROCEDURES Kenna l Result from Last 3 Months or Most Recently Relevant to Health Maintenance Insurance [facility] HMO/PPO Address: [facility] [id number] [place] [address] [facility] CHOICE PLUS [facility]IGNA [facility] PLUS CIGNA Care Teams Vp Hr Diversity Relationship Specialty Start Date End Date Russell Carrion MD [address] [place] [address] [address] [place] [address] PCP - General 06/18/16 Taiwo Sands, RN Registered Nurse 01/27/17 Sarah Darby, JAILENE Registered Nurse Pain Management 08/08/17 Conner Altman MD [address] [place] [address] [address] [place] [address] Consulting Physician Anesthesiology 09/28/23
[2024-06-01 15:20] VITALS: BP 132/72; PULSE 88; RESP 20; TEMP 36.4; O2SAT 100
--- OUTSIDE RECORDS SUMMARY | 2024-06-01 15:20 | XMS_ITS | Continuity of Care Document ---
Author Organization [facility] Address [address] [place] [address] Phone Care Team Providers Care Wound Care Coordinator Name Role Phone Russell Leong MD Unavailable [...] Diagnoses Date Provider Providers Copied on Encounter [facility], [address], [place], [place], [id number], tel:[phone] SEC [place] Professional Difficulty reading (chief complaint) Nuclear sclerosis of both eyesSPK (superficial punctate keratitis), bilateral 6 Salo Wells. [address], [place], [place], [address], [place]. tel:[phone] Referring Provider: London Will MD, [address], [place], [address]. tel:[phone] [facility], [address] [place] [address] [address], [place], [place], [address], [place] tel:[phone] SEC [place] Professional No Information [address] Sanjuanita Fu[address] [place] [address] [address], [address], [place], [place], [address], [place]. tel:[phone] Office/outpa tient Visit, [facility], [address] [place] [address] [address], [place], [place], [id number], [place] tel:[phone] SEC [place] Professional Follow Up of Corneal Abrasion (chief complaint) Abrasion, corneal, right, subsequent encounter Oct-1 - 5 Salo Wells. [address], [place], [place], [address], [place]. tel:[phone] Referring Provider: London Will MD, [address], [place], [address]. tel:[phone] Office/outpa tient Visit, [facility], [address] [place] [address] [address], [place], [place], [address], [place] tel:[phone] SEC [place] Professional 2 day follow up (chief complaint) Abrasion of cornea, right, subsequent encounter Oct-0 5 Salo Wells. [address], [place], [place], [address], [place]. tel:[phone] Referring Provider: London Will MD, [address], [place], [address]. tel:[phone] Office/outpa tient Visit, [facility], [address] [place] [address] [address], [place], [place], [id number], [place] tel:[phone] SEC [place] Professional pain (chief complaint) Corneal abrasion, right, initial encounter Oct-0 5 Wankum Henri. [address] [facility], [address], [place], [place], [address], [place]. tel:[phone] Referring Provider: London Will MD, [address], [place], [address]. tel:[phone] Office/outpa tient Visit, [facility], [address], [place], [place], [address], [place] tel:[phone] SEC [place] Professional evaluation (chief complaint) Shingles June- 5 Rick Álvarez. [address] [facility], [place], [place], [address], [place]. tel:[phone] Referring Provider: London Will MD, [address], [place], [address]. tel:[phone] Family History Family Member Type Diagnosis Age At Onset Father Problem (finding) diabetes melli tus in first degree relative Father Problem (finding) Retinal disease Payers Payer name Insurance type Covered constitution party ID Authoriza timaricruz(s) [employer] [id number] Social History Type Description Quantity Date Captured [...]
--- NOTE | 2024-06-01 15:28 | ED_ITS ---
HPI - Extremity Injury (Upper) General Chief Complaint: Extremity Injury, Upper Stated Complaint: right arm injury Time Seen by Provider: 06/01/24 15:25 Source: patient Mode of arrival: ambulatory Limitations: no limitations History of Present Illness HPI narrative: Papo is a 58-year-old female patient presenting to the clinic today with complaints of right arm injury/pain. She reports on Tuesday she was swinging her arms while walking and hit her right distal forearm on the granite counter top. Has bruising and swelling to the distal right forearm. Related Data Home Medications ?Medication ?Instructions ?Recorded ?Confirmed ?Last Taken ?Type hydrocodone 10 mg-acetaminophen 1 tablet PO Q4H PRN Pain 12/22/18 02/10/24 Unknown History 325 mg tablet ([place]) Allergies Allergy/AdvReac Type Severity Reaction Status Date / Time cephalexin Allergy Unknown Rash Verified 06/01/24 15:27 prochlorperazine AdvReac Mild dyskinesia Verified 06/01/24 15:27 Review of Systems Review of Systems: Pertinent positives per HPI. Patient denies any fever, chills, rash, headache, visual changes, dizziness, cough, runny nose, sore throat, shortness of breath, chest pain, palpitations, nausea, vomiting, diarrhea, constipation, abdominal pain, or any urinary issues. [facility] Past Medical History Medical History GERD (gastroesophageal reflux disease) Insomnia Chronic low back pain HTN (hypertension) Vitamin B12 deficiency Vitamin D deficiency IFG (impaired fasting glucose) LEVAR (generalized anxiety disorder) Major depression, chronic Family History Family History Father Hypertension Family history of kidney disease Family history of diabetes mellitus in first degree relative Family history of coronary artery disease Mother Hypertension Sibling Family history of Hodgkin's lymphoma Social History Social History Smoking packs per day: 0.5 Smoking cigarettes per day: 10.0 Years smoked: 20 Smoking pack-years: 10.00 Smoking status: Light tobacco smoker Tobacco type: cigarettes Second hand tobacco smoke exposure: Yes Smoking end date: 02/08/04 Alcohol intake: never Substance use: current Substance use type: opiates Other substance usage details: 10mg hydrocodone-acetaminophen 3-4 times daily for back pain Living arrangements: with friend(s) Occupation/Education: occupation Gender identity (if verbalized by the patient): Female Spiritual care concerns: No Comments At the time of my signature, I reviewed and agree with the nursing past medical, surgical, social, and family history. There is no relevant family history pertinent to the patient complaint. Exam Narrative: General: Well-developed, well nourished, in no apparent distress Head: Normocephalic, atraumatic. Cardio: Regular rate and rhythm, s1 and s2 normal, no murmur appreciated. Resp: Clear to auscultation bilaterally, no rhonchi, rales, wheezing or rubs. Musculoskeletal: No deformity, tender to palpation over the distal right forearm with localized bruising and swelling, grossly normal range of motion, muscle strength strong and equal, peripheral pulse strong, no edema, no cyanosis, normal gait and station Course Course Emergency Course: Portions of this record may have been created with voice recognition software. Level of Care: Express Care Visit Vital Signs Vital signs: Vital Signs Temperature 36.4 C L 06/01/24 15:20 Pulse Rate 88 06/01/24 15:20 Respiratory Rate 20 06/01/24 15:20 Blood Pressure 132/72 06/01/24 15:20 Pulse Oximetry 100 06/01/24 15:20 Oxygen Delivery Room Air 06/01/24 15:20 Temperature 36.4 C L 06/01/24 15:20 Pulse Rate 88 06/01/24 15:20 Respiratory Rate 20 06/01/24 15:20 Blood Pressure 132/72 06/01/24 15:20 Pulse Oximetry 100 06/01/24 15:20 Oxygen Delivery Room Air 06/01/24 15:20 Vital signs reviewed MDM - Extremity Injury (Upper) MDM Narrative Medical decision making narrative: At the time of visit patient is resting comfortably on the exam table. Patient appears to be nontoxic. Diagnostics: X-ray of the right forearm was performed and was negative for any sign of fracture or malalignment. Plan: Suspect patient has a right forearm contusion. Supportive measures were discussed with the patient and they voiced understanding discharge instructions and agrees to treatment plan. Return precautions reviewed Differential Diagnosis Differential diagnosis: Likely sprain and strain of wrist, fracture of wrist and other (Radial fracture, contusion) Imaging Data Radiologist's impression: ITS Impressions Forearm X-Ray 06/01/24 15:39 IMPRESSION: No acute osseous abnormality right forearm. Discharge Plan Discharge Clinical Impression: Contusion of forearm, right Qualifiers: Encounter type: initial encounter Qualified Code(s): S50.11XA - Contusion of right forearm, initial encounter Patient Disposition: Home Condition: Stable Instructions: Antibiotic Form, Contusion in Adults (ED) Additional Instructions: X-rays negative for any fracture or malalignment of the forearm Rest, ice, elevate, and wear xavier wrap as directed Tylenol/motrin for pain as discussed. Follow up with your PCP if symptoms persist more than 1 week. Patient Language: Citizen Of [place] Prescriptions: No Action cetirizine 10 mg tablet 10 mg PO DAILY Qty: 90 2RF hydrocodone-acetaminophen [[place]] 10-325 mg tablet 1 tablet PO Q4H PRN (Reason: Pain) etodolac 500 mg tablet 500 mg PO BID Qty: 180 2RF losartan 100 mg tablet 100 mg PO DAILY Qty: 90 1RF omeprazole 20 mg capsule,delayed release(DR/EC) See Rx Instructions .ROUTE .COMPLEX Qty: 90 2RF Dose Instruction: TAKE 1 CAPSULE DAILY Rx Instructions: TAKE 1 CAPSULE DAILY estradiol [Estrace] 1 mg tablet 1 mg PO DAILY Qty: 90 2RF medroxyprogesterone 2.5 mg tablet 5 mg PO DAILY Qty: 180 2RF amlodipine 5 mg tablet 5 mg PO DAILY Qty: 90 1RF trazodone 50 mg tablet 100 mg PO DAILY Qty: 180 2RF duloxetine 60 mg capsule,delayed release(DR/EC) 60 mg PO DAILY Qty: 90 3RF Follow-up/Referrals: Russell Carrion MD [Primary Care Provider] - Time of Disposition: 15:50 Quality NIHSS Nursing Documentation ED NIHSS nursing documentation: reviewed/agree
== END 2024-06-01 15:56 | disposition home or self-care (01) ==
PROVIDERS: Emergency Provider Nurse Practitioner Family; PCP Family Medicine
DX: S50.11XA Contusion of right forearm, initial encounter (principal); I10 Essential (primary) hypertension; F17.210 Nicotine dependence, cigarettes, uncomplicated; W22.09XA Striking against other stationary object, initial encounter
CPT/HCPCS: 73090; 99213; G0463

== ENCOUNTER 2024-07-23 14:27 | Outpatient (CLI) | payer OTHER, SELFPAY ==
--- NOTE | ~2024-07-23 | CT_ITS ---
CLINICAL INDICATION: History of nicotine dependence COMPARISON: 06/21/2023. TECHNIQUE: Multiple contiguous axial images of the chest was performed without the administration of intravenous contrast. This CT examination was performed utilizing dose reduction techniques. DLP: 41 mGy-cm FINDINGS/OBSERVATIONS: LUNG: Redemonstration of a multilobulated nodule within the left upper lobe (axial series, image 27) measur ing 5.0 x 4.0 mm compared with 4.5 x 3.7 mm on the previous study. This is without significant change given changes in positioning within the gantry and technique. No additional nodules are identified. HEART: The heart is of normal size, without pericardial effusion. MEDIASTINUM: Limited evaluation without intravenous contrast SOFT TISSUES OF THE CHEST: Unremarkable. BONES OF THE CHEST: No acute fracture. No lytic or blastic lesions are identified. IMPRESSION: LI-RADS Category 2: Benign appearance and behavior. Very low likelihood clinically cancer due to size or lack of significant growth. Recommendation continue annual screening with low dose CT in 12 months. Probability of malignancy is less than 1% Reviewed, dictated and finalized at location A. IMPRESSION: LI-RADS Category 2: Benign appearance and behavior. Very low likelihood clinically cancer due to size or lack of significant growth . Recommendation continue annual screening with low dose CT in 12 months. Probability of malignancy is less than 1%
== END 2024-07-23 14:28 | disposition home or self-care (01) ==
LOC: MICIMG 14:28
PROVIDERS: PCP Family Medicine; Visit Provider Student in an Organized Health Care Education/Training Program
DX: Z12.2 Encounter for screening for malignant neoplasm of respiratory organs (principal); Z87.891 Personal history of nicotine dependence
CPT/HCPCS: 71271